=== PATIENT | male | born 1960 ===

== ENCOUNTER 2025-06-24 16:17 | Emergency (ER) | payer OTHER ==
[2025-06-24] MEDS ORDERED: DIAZEPAM 5 MG TABLET ONE (18:33)
[2025-06-24] MEDS ORDERED: KETOROLAC 30 MG/ML INJ ONE (18:33)
[2025-06-24] MEDS ORDERED: HYDROCODONE/APAP 5/325 MG TAB ONE (18:33)
--- NOTE | 2025-06-24 20:30 | RAD REPORT ---
Extremity Venous Uni Ltd CLINICAL INDICATION: Male, 65 years old.PAIN TECHNIQUE: Complete duplex sonography of the lower extremity veins was performed of the affected limb . The examination included compression for vein patency, color Doppler imaging and flow augmentation in response to distal compression of the distal external iliac, common femoral, femoral, popliteal, peroneal, tibial and great saphenous veins. [id number]. COMPARISON: No prior exams FINDINGS: Duplex sonography imaging demonstrates all deep veins examined to be fully compressible with spontane ous, phasic and augmented flow in the affected limb. IMPRESSION: No evidence of deep venous thrombosis in the left lower extremity.
--- NOTE | 2025-06-24 20:31 | RAD REPORT ---
EXAM: Lower Extremity Artery Uni Ltd HISTORY: PAIN COMPARISON: None TECHNIQUE: Multiplanar grayscale and color Doppler images were obtained and a left lower extremity ar terial ultrasound. Spectral analysis of the Doppler waveforms were performed. FINDINGS: Left lower extremity: Common femoral artery: Triphasic Superficial femoral artery: Triphasic Popliteal artery: Triphasic Posterior tibial artery: Triphasic Dorsalis pedis artery: Triphasic IMPRESSION: No significant arterial abnormality of the left lower extremity.
--- NOTE | 2025-06-24 20:34 | EDPHYS ---
Physician Documentation [facility] Name: Wilbert Mchugh Age: 65 yrs Sex: Male : 1960 Arrival Date: 06/24/2025 Time: 16:17 Bed 9 Private MD: ED Physician Fredo Tejada HPI: 06/24 19:30 This 65 yrs old Unknown Male presents to ER via EMS with complaints of Leg Pain. kb 19:30 Patient is a 65-year-old male who presents for pain to left low back/buttock that kb radiates down the back of his leg. States he has had sciatica several times in the past, normally has tingling to that leg. States the pain started whenever he twisted today.. Historical: - Allergies: 16:31 Codeine; dd2 - PMHx: 16:31 Hypertensive disorder; Myocardial infarction; Diabetes mellitus; dd2 - PSHx: 16:31 Coronary artery bypass graft; dd2 - Immunization history:: Adult Immunizations unknown. - Infectious Disease History:: Denies. - Social history:: Smoking status: Patient denies any tobacco usage or history of. ROS: 19:24 Constitutional: As per HPI kb Exam: 19:24 Constitutional: This is a well developed, well nourished patient who is awake, alert, kb and in no acute distress. Head/Face: Normocephalic, atraumatic. ENT: Moist Mucous membranes Cardiovascular: Regular rate Respiratory: Respirations even and unlabored. No increased work of breathing. Talking in full sentences Skin: Warm, dry with normal turgor. Normal color. Neuro: Awake and alert, GCS 15, oriented to person, place, time, and situation. 19:24 Musculoskeletal/extremity: Extremities: grossly normal except: noted in the left lower back, left gluteus bennett and left hamstring: pain, tenderness, ROM: limited active range of motion due to pain, Circulation is intact in all extremities. Sensation intact. Vital Signs: 16:29 BP 170 / 100; Pulse 101; Resp 16; Temp 98.3; Pulse Ox 100% ; Pain 10/10; dd2 19:06 BP 143 / 97; Pulse 88; Resp 17; Pulse Ox 100% on R/A; ap3 20:05 BP 136 / 88; Pulse 84; Resp 16; Pulse Ox 100% on R/A; dd2 21:06 BP 132 / 80; Pulse 81; Resp 16; Pulse Ox 100% on R/A; dd2 16:29 Pain Scale: Adult dd2 MDM: 16:19 Medical Screening Exam initiated kb 20:32 Differential diagnosis: sciatica, strain, arthritis, dvt, occlussion. Data reviewed: kb vital signs, nurses notes. Historians other than the Patient: EMS: [facility]. Counseling: I had a detailed discussion with the patient and/or guardian regarding the historical points, exam findings, and any diagnostic results supporting the discharge/admit diagnosis, radiology results, the need for outpatient follow up, a family practitioner, to return to the emergency department if symptoms worsen or persist or if there are any questions or concerns that arise at home. 06/24 18:32 Order name: Glucose, Ancillary Testing; Complete Time: 18:33 EDMS 06/24 19:28 Order name: US Extremity Venous Unilateral Ltd; Complete Time: 20:31 kb 06/24 19:28 Order name: Lower Extremity Artery Uni Ltd ; Complete Time: 20:32 kb 06/24 16:19 Order name: Blood Glucose Level; Complete Time: 18:21 kb Administered Medications: 18:40 Drug: Diazepam PO 5 mg PO once Route: PO; ap3 18:40 Drug: Ketorolac IM 30 mg IM once Route: IM; Site: left deltoid; ap3 18:42 Drug: HYDROcodone-acetaminophen PO 5 mg-325 mg 1 tabs PO once Route: PO; ap3 19:25 Drug: Dexamethasone IM 10 mg IM once Route: IM; Site: left vastus lateralis; dd2 Disposition Summary: 06/24/25 20:34 Discharge Ordered Notes: Location: Home kb Condition: Stable kb Diagnosis - Sciatica, left side kb Followup: kb - With: Emergency Department - When: As needed - Reason: Worsening of condition Followup: kb - With: Private Physician - When: 2 - 3 days - Reason: Recheck today's complaints, Continuance of care, Re-evaluation by your physician Discharge Instructions: - Discharge Summary Sheet kb - Sciatica, [id number] kb Forms: - Medication Reconciliation Form kb - Antibiotic Education kb - Prescription Opioid Use kb - Patient Portal Instructions kb - Leadership Thank You Letter kb Prescriptions: - Cyclobenzaprine 10 mg Oral Tablet - take 1 tablet ORAL route every 8 hours As needed; 30 tablet; Refills: 0, kb Product Selection Permitted - Diclofenac Sodium 75 mg Oral tablet, delayed release (enteric coated) - take 1 tablet ORAL route 2 times per day As needed; 30 tablet; Refills: 0, kb Product Selection Permitted Addendum: 06/27/2025 14:35 Co-signature as Attending Physician, Fredo Tejada MD I agree with the assessment and c shin plan of care. Signatures: Dispatcher [employer] EDHina Meneses, HUSSEIN SMITH-Fredo Martin MD MD cha Prokisch, Amanda RN RN ap3 MARGARETTE ANTOINE RN RN dd2 Corrections: (The following items were deleted from the chart) 06/24 16:32 16:31 Allergies: No Known Allergies; dd2 dd2 19:31 19:30 Patient is a 65-year-old male who presents for pain to left low back/buttock that kb radiates down the back of his leg. kb
--- NOTE | 2025-06-24 20:34 | ER ---
Nurse's Notes [facility] Name: Wilbert Mhcugh Age: 65 yrs Sex: Male : 1960 Arrival Date: 06/24/2025 Time: 16:17 Bed 9 Private MD: Diagnosis: Sciatica, left side Presentation: 06/24 16:29 Chief complaint: EMS states: PT REPORTS PAIN TO LT LOWER BACK AND HIS 'SCIATICA'. PT dd2 REPORTS ATTEMPTING TO STAND TODAY AND TWISTED HIS BACK. Coronavirus screen: At this time, the client does not indicate any symptoms associated with coronavirus-19. Ebola Screen: No symptoms or risks identified at this time. Initial Sepsis Screen: Does the patient meet any 2 criteria? No. Patient's initial sepsis screen is negative. Does the patient have a suspected source of infection? No. Patient's initial sepsis screen is negative. Risk Assessment: Do you want to hurt yourself or someone else? Patient reports no desire to harm self or others. Onset of symptoms was June 24, 2025. 16:29 Method Of Arrival: EMS: [facility] dd2 16:29 Acuity: ZACK 3 dd2 Triage Assessment: 16:31 General: Appears in no apparent distress. uncomfortable, Behavior is calm, cooperative, dd2 appropriate for age. Pain: Complains of pain in left low back, left gluteus bennett and left gluteal fold Pain radiates to left leg. Historical: - Allergies: 16:31 Codeine; dd2 - PMHx: 16:31 Hypertensive disorder; Myocardial infarction; Diabetes mellitus; dd2 - PSHx: 16:31 Coronary artery bypass graft; dd2 - Immunization history:: Adult Immunizations unknown. - Infectious Disease History:: Denies. - Social history:: Smoking status: Patient denies any tobacco usage or history of. Screenin:[facility] ED Fall Risk Assessment (Adult) History of falling in the last 3 months, ap3 including since admission No falls in past 3 months (0 pts) Confusion or Disorientation No (0 pts) Intoxicated or Sedated No (0 pts) Impaired Gait No (0 pts) Mobility Assist Device Used No (0 pt) Altered Elimination No (0 pt) Score/Fall Risk Level 0 - 2 = Low Risk Oriented to surroundings, Maintained a safe environment, Educated pt \T\ family on fall prevention, incl call for assistance when getting out of bed, Assessed \T\ reinforced patient's understanding of fall precautions, Hourly rounding (assess needs \T\ fall precautionary measures) done, Used ambulatory aids as needed (educated on \T\ assisted with). Abuse screen: Denies threats or abuse. Nutritional screening: No deficits noted. Tuberculosis screening: No symptoms or risk factors identified. Assessment: 17:31 Reassessment: Patient and/or family updated on plan of care and expected duration. Pain ll1 level reassessed. 18:52 Reassessment: Patient and/or family updated on plan of care and expected duration. Pain ap3 level reassessed. Patient is alert, oriented x 3, equal unlabored respirations, skin warm/dry/pink. General: Appears uncomfortable. Pain: Complains of pain in left leg and left gluteus bennett. Neuro: Level of Consciousness is awake, alert, obeys commands, Oriented to person, place, time, situation, Appropriate for age. Cardiovascular: Patient's skin is warm and dry. Respiratory: Airway is patent Respiratory effort is even, unlabored, Respiratory pattern is regular, symmetrical. Vital Signs: 16:29 BP 170 / 100; Pulse 101; Resp 16; Temp 98.3; Pulse Ox 100% ; Pain 10/10; dd2 19:06 BP 143 / 97; Pulse 88; Resp 17; Pulse Ox 100% on R/A; ap3 20:05 BP 136 / 88; Pulse 84; Resp 16; Pulse Ox 100% on R/A; dd2 21:06 BP 132 / 80; Pulse 81; Resp 16; Pulse Ox 100% on R/A; dd2 16:29 Pain Scale: Adult dd2 ED Course: 16:18 Patient arrived in ED. kb 16:18 Hina Lang F[facility]-C [facility]. kb 16:18 Fredo Tejada MD is Attending Physician. kb 16:31 Triage completed. dd2 16:31 Arm band placed on right wrist. dd2 17:31 Patient placed in an exam room, on a stretcher. ll1 18:21 Leanna Jaquez, RN is Primary Nurse. ap3 20:11 US Extremity Venous Unilateral Ltd In Process Unspecified. EDMS 20:12 Lower Extremity Artery Uni Ltd US In Process Unspecified. EDMS 21:04 Patient has correct armband on for positive identification. Provided Education on: d/c dd2 education. 21:04 No provider procedures requiring assistance completed. Patient did not have IV access dd2 during this emergency room visit. Administered Medications: 18:40 Drug: Diazepam PO 5 mg PO once Route: PO; ap3 18:40 Drug: Ketorolac IM 30 mg IM once Route: IM; Site: left deltoid; ap3 18:42 Drug: HYDROcodone-acetaminophen PO 5 mg-325 mg 1 tabs PO once Route: PO; ap3 19:25 Drug: Dexamethasone IM 10 mg IM once Route: IM; Site: left vastus lateralis; dd2 Medication: 21:04 VIS not applicable for this client. dd2 Outcome: 20:34 Discharge ordered by . kb 21:06 Discharged to home ambulatory, dd2 21:06 Condition: improved 21:06 Discharge instructions given to patient, Instructed on discharge instructions, follow up and referral plans. medication usage, Demonstrated understanding of instructions, follow-up care, medications, Prescriptions given X 2, 21:07 Patient left the ED. dd2 Signatures: Dispatcher [employer] EDMS Hina Lang, FINANCIAL SALES ASSOCIATE-C FINANCIAL SALES ASSOCIATE-CkLeanna Yarbrough RN RN ap3 Leann Cabrera RN RN ll1 MARGARETTE ANTOINE RN RN dd2 Corrections: (The following items were deleted from the chart) 16:32 16:31 Allergies: No Known Allergies; dd2 dd2
[2025-06-24 21:55] VITALS: TEMP 98.3; O2SAT 100
[2025-06-24 21:59] VITALS: BP 132/80
== END 2025-06-24 21:07 | disposition home or self-care (01) ==
LOC: ER 16:17
DX: M54.32 Sciatica, left side (principal)
CPT/HCPCS: 82947; 93926; 93971; 96372; 99284; J1100